=== PATIENT | female | born 1995 | race Caucasian/White ===

== ENCOUNTER 2016-10-08 20:12 | Emergency (ER) | payer SELFPAY ==
[2016-10-08 20:29] VITALS: BP 100/68; BMI 15.9
[2016-10-08 21:50] LABS: SERUM PREGNANCY TEST, QUAL NEGATIVE <10 mIU/mL
--- NOTE | 2016-10-08 22:54 | DR.GENAD ---
HPI - PCP Primary Care Physician: NFD - Complaint/Symptoms Chief Complaint:: SHARP PAIN IN LEFT LOWER ABD. GROIN AREA. PATIENT HAVING SOME LIGHT BROWN VAGINAL DRAINAGE. PT DOES NOT KNOW IF IT'S HER MENSTRUAL CYCLE OR IF SHE IS AND SOMETHING ELSE IS GOING ON - Source History Provided: Patient - Mode of Arrival Mode of Arrival: Ambulatory - Timing Onset of Chief Complaint: 10/06/16 PMH - PMH Past Medical History: Yes Past Medical History: Anxiety, Depression Past Surgical History: No - Family History History of Family Medical Conditions: Yes Family Medical History: Diabetes Mellitus, Cancer, Hypertension - Social History Does patient currently use any type of tobacco product: Yes Have you used tobacco products in the last 12 months: Yes Type of Tobacco Use: Cigarettes How many years tobacco product used: 1 Does any household member use tobacco: Yes Alcohol Use: None Do you use any recreational Drugs:: No Lives With: Significant Other Lives Where: Home - infectious screening In the last 2 months have you had wt loss of >10#?: NO Have you had fever, night sweats or hemotysis?: Yes Have you traveled outside the country in the last 6 months?: No Isolation: Standard PE - Vital Signs Vitals: Temperature 99.1 F Pulse Rate 100 Respiratory Rate 16 Blood Pressure 100/68 O2 Sat by Pulse Oximetry 99 ROR - Labs Reviewed Laboratory: HCG, Qual Negative <10 mIU/mL 10/08/16 21:30 - Discharge Plan Condition: Stable - Follow ups/Referrals Follow ups/Referrals: YAEL,None [Primary Care Provider] - 3 days - Instructions
--- NOTE | 2016-10-09 00:58 | RAD ---
KUB Indication:Abdominal pain Comparison: None available Findings: There is a normal bowel gas pattern. No free air or pneumatosis. No pathological soft tissue mass or calcification can be observed. The bony structures are grossly intact. IMPRESSION: No evidence for acute abdominal or pelvic pathology identified. Reported By:
== END 2016-10-08 23:53 | disposition left against medical advice (07) ==
LOC: ER 20:12
DX: R10.84 Generalized abdominal pain (principal)
CPT/HCPCS: 36415; 74000; 84703; 99282